=== PATIENT | female | born 1995 | race Hispanic/Latino ===

== ENCOUNTER 2018-08-23 15:13 | Emergency (ER) | payer OTHER, MEDICAID ==
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
[2018-08-23 18:09] VITALS: RESP 20; O2SAT 99
[2018-08-23 18:15] VITALS: BP 108/72; PULSE 81; TEMP 98.1
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
== END 2018-08-23 18:28 | disposition home or self-care (01) ==
LOC: C.ER 15:13
DX: R51 Headache (principal); V89.2XXA Person injured in unspecified motor-vehicle accident, traffic, initial encounter